=== PATIENT | female | born 1985 | race Caucasian/White ===

== ENCOUNTER 2017-01-19 07:30 | Inpatient (IN) | payer OTHER ==
--- NOTE | 2017-01-12 13:59 | GHP ---
[f rep st] PREOP HISTORY AND PHYSICAL DATE OF ADMISSION: 01/19/2017 DATE OF PLANNED PROCEDURE: 01/19/2017. PLANNED PROCEDURE: Repeat low transverse section. INDICATIONS: The patient is a 31-year-old 2, para 1, 0, 0, 1, who will be 39 and 3/7 weeks gestation. She has a history of a previous low transverse section. There is a lot of uncertainty over the indication for her initial section. The patient states a [facility] provider was covering call for her group. She progressed to completely dilated and did not even get a chance to begin pushing, and the provider came in and said she needed a for arrest of active phase labor and chorioamnionitis. The patient has been adequately counseled on the options of vaginal after section versus repeat . She would like to plan for a repeat section and has signed consent just in case she does happen to go into labor and decides to try a vaginal after section. The patient's family status is likely complete, but she is not ready to have a tubal ligation. Risks and benefits have been reviewed with the patient, and the patient has been properly consented. The patient had a low-lying placenta, which did resolve with followup ultrasound. MEDICAL HISTORY: History of migraine headaches. History of lipoma. MEDICATIONS: vitamins and iron. SURGICAL HISTORY: section, removal of lipoma on her back. ALLERGIES: No known drug allergies. SOCIAL HISTORY: The patient is . She lives with her and their daughter, who is 2-1/2. 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 She denies tobacco , alcohol, or drug use. FAMILY MEDICAL HISTORY: Noncontributory. 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 Periods every 28 days, lasting 5 days. She is a 2, para 1, 0, 0, 1. In 06/2014, she had a primary low transverse section at 40 and 4/7 weeks' gestation of a 7 pound, 2 ounce female . She was told that the baby was stuck at her pubic bone after she was completely dilated but did not begin to push and recommended having a C- section. Operative note was reviewed, and no further details were noted about that. The patient does have a remote history of abnormal Pap smears but has never had any colposcopies or procedures. Repeat Paps have been negative. The patient denies any history of any sexually transmitted diseases. PHYSICAL EXAMINATION: VITAL SIGNS: Stable. GENERAL APPEARANCE: Alert and oriented x3. NEURO: She has appropriate affect. NECK: Normal range of motion. Supple. There is no thyromegaly. LUNGS: Clear to auscultation bilaterally. HEART: Rate is regular, regular. ABDOMEN: Gravid, nondistended , nontender. No other organomegaly is noted. EXTREMITIES: No calf tenderness or edema. Reflexes are 2+ DTR bilaterally. DAIRY FARM OPERATOR: is in a vertex presentation. She is not having any contractions. heart tracing has been reactive. Cervical exam is deferred. LABS: Blood type O positive. Antibody screen negative. Rubella immune. GBS negative. HBsAg negative. HIV negative. Her 50g glucose was 74. The patient did not do any genetic testing. ASSESSMENT AND PLAN: 31-year-old 2, para 1, 0, 0, 1, who will be 39 and 3/7 weeks gestation. Has a history of a previous low transverse section. Will have a repeat section. Risks and benefits of the procedure extensively have been reviewed with the patient and her , and the patient has been properly consented. /[id number]/MODL MTDD
[2017-01-19] MEDS ORDERED: CITRIC ACID/SODIUM CITRATE 30 ML UDCUP PO ONE (08:26)
[2017-01-19] MEDS ORDERED: ceFAZolin 2 GM/DEXTROSE 100 ML IV ONE (08:26)
[2017-01-19] MEDS ORDERED: LR 500 ML IV ONE (08:26)
[2017-01-19] MEDS ORDERED: LR 1,000 ML IV SCH (08:30)
[2017-01-19 08:51] LABS: % IMMATURE GRANULYOCYTES 0.9 % (0.0-1.1); ABSOLUTE IMMATURE GRANULOCYTES 0.08 10^3/uL (0.00-0.10); ADD DIFF? NO; ADD MORPH? NO; ADD SCAN? NO; ATYPICAL LYMPHOCYTE FLAG 30 (0-99); FRAGMENT RBC FLAG 0 (0-99); HEMATOCRIT 35.8 % (38.0-47.0); HEMOGLOBIN 12.9 g/dL (12.6-16.3); LEFT SHIFT FLG 10 (0-99); LIPEMIA HEMOLYSIS FLAG 90 (0-99); MEAN CELL HEMOGLOBIN 32.7 pg (27.9-34.1); MEAN CELL VOLUME 90.6 fL (81.5-99.8); MEAN PLATELET VOLUME 11.2 fL (8.7-11.7); PLATELET CLUMPS FLAG 10 (0-99); PLATELET COUNT 211 10^3/uL (150-400); RED BLOOD CELL COUNT 3.95 10^6/uL (4.18-5.33); RED CELL DISTRIBUTION WIDTH 13.2 % (11.5-15.2)
[2017-01-19] MEDS ORDERED: AMMONIA AROMATIC 1 EACH AMP IH ONE (09:19)
[2017-01-19] MEDS ORDERED: MISOPROSTOL 200 MCG TAB ONE (09:20)
[2017-01-19] MEDS ORDERED: morphINE PF 5 MG/10 ML INJ ONE (09:43)
[2017-01-19] MEDS ORDERED: fentaNYL 100 MCG/2 ML INJ ONE (09:43)
[2017-01-19] MEDS ORDERED: PHENYLEPHRINE HCL 100 MCG/ML SYR ONE (10:14)
[2017-01-19] MEDS ORDERED: OXYTOCIN 100 UNITS/10 ML VIAL ONE (10:14)
[2017-01-19] MEDS ORDERED: DEXAMETHASONE 4 MG/ML VIAL ONE ×2 (10:14→10:15)
[2017-01-19] MEDS ORDERED: ONDANSETRON 4 MG/2 ML VIAL ONE ×2 (10:15)
[2017-01-19] MEDS ORDERED: POLYETHYLENE GLYCOL 3350 17 GM PKT PO PRN (11:20)
[2017-01-19] MEDS ORDERED: BISACODYL 10 MG SUPP PR PRN (11:20)
[2017-01-19] MEDS ORDERED: ACETAMINOPHEN 325 MG TAB PO PRN (11:20)
[2017-01-19] MEDS ORDERED: MAGNESIUM HYDROXIDE 30 ML UDCUP PO PRN (11:20)
[2017-01-19] MEDS ORDERED: LACTULOSE 20 GM/30 ML UDCUP PO PRN (11:20)
--- NOTE | 2017-01-19 11:20 | OBPROC ---
- Delivery Pre-op Diagnoses: IUP 39 1/7 weeks, hx prior section Post-op Diagnoses: same plus occiput posterior, body card Procedure: Repeat, Low Transverse Surgeon: Sofie Edmondson Mastic Floor Layer: Tricia Madera Anesthesiologist: Mega Nichols Anesthesia: Spinal Complications: Nucal Cord (body/under arm) EBL: 700 - Crozier Info Infant A Delivery Date: 01/19/17 Delivery Time: 10:28 Sex of Infant: Female Score (1 Min): 8 Score (5 Min): 8
--- NOTE | 2017-01-19 12:07 | GOP ---
[f rep st] OPERATIVE REPORT DATE OF OPERATION: 01/19/2017 SURGEON: Sofie Edmondson DO ESL INSTRUCTOR: RANI Vences. ANESTHESIA: Spinal. ANESTHESIOLOGIST: Mega Nichols MD. PREOPERATIVE DIAGNOSIS: 1. Intrauterine at 39-3/7 weeks. 2. History of previous low transverse section, desires repeat , declines tubal li gation. POSTOPERATIVE DIAGNOSIS: PROCEDURE PERFORMED: Repeat low transverse section. FINDINGS: 1. 7-pounds female in the occiput posterior presentation with a body cord delivered at 10:28 a.m. Apgars were 8 and 8. 2. Intact placenta with 3-vessel cord. 1. Normal ovaries, uterus, and tubes. ESTIMATED BLOOD LOSS: 700 cc. INDICATIONS: Patient is a 31-year-old, 2, para 1-0-1-1 who has a history of a previous low transverse section for probable cephalopelvic disproportion; however, it is not entirely cl ear from her operative report, and patient was never clear on the actual indication. She has a hist ory of a previous low transverse section but has elected to proceed with a repeat low trans verse section. Her family status is complete, but she is not 100% ready to have a tubal li gation, so we will not do that today. Management options of vaginal after section ve rsus repeat section were reviewed extensively. The patient was consented, and she desires to proceed. DESCRIPTION OF PROCEDURE: Patient was taken to the operating room with intravenous fluids in place. She was then seated on the operating table and room where spinal anesthesia was obtained. She was then repositioned into the dorsal supine position with a leftward tilt. 2 g of Ancef was hung and the Venodynes were placed on her lower extremities, and a Zuleta catheter was placed without difficul ty. Abdomen was then prepped and draped in the normal sterile fashion. Anesthesia was assessed and found to be adequate. A Pfannenstiel skin incision was then made 2 fingerbreadths above the pubic symphysis. The incision was then carried through to the underlying layer of fascia with the Bovie. The fascia was then nicked in the midline, and a fascial incision was extended laterally. The supe rior aspect of the fascial incision was then grasped with a Fausto, tented up, and the underlying re ctus muscle dissected off bluntly with the Bovie. Attention was then turned to the inferior aspect of the fascial incision, which, in a similar fashion, was grasped with a Fausto, tented up, and the underlying rectus muscle was dissected off bluntly and with the Bovie. The rectus muscle was then s eparated in the midline. The peritoneum was then identified, tented up, and entered sharply with th e Metzenbaum scissors. The incision was extended superiorly and inferiorly with excellent visualiza tion of the bladder. The bladder blade was then inserted. The vesicouterine peritoneum was then id entified, tented up, and entered sharply with the Metzenbaum scissors. The incision was extended la terally, and the bladder flap was created digitally. The bladder blade was then reinserted. The ut erus was then incised in low transverse fashion with the a scalpel. The uterine incision was extend ed laterally. Copious clear fluid was noted upon entering the uterus. The was head was deli heber through the incision. It was noted to be in the occiput posterior presentation. Cord was wra pped around the baby underneath the armpit the remainder of a 7 pounds female infant was then delive red without difficulty. Cord was clamped x2 and cut after 1 minute of delayed cord clamping, and th e was handed off to awaiting nurse practitioner. They placenta was then delivered w ithout difficulty. Three-vessel cord was noted. The uterus was then exteriorized and cleared of al l clots and debris, and the ovaries uterus and tubes were unremarkable. The bladder blade was then reinserted. The uterine incision was then closed with 0 Vicryl in a running, locked fashion. A 2nd tie of 0 Vicryl stitch was used to imbricate the uterine incision. Hemostasis was assured. The ut erus was then returned to the patient's abdomen. Gutters were cleared of all clots and debris. Hys terotomy remained hemostatic. Peritoneum was reapproximated with 3-0 Vicryl in a running fashion. Rectus muscle was reapproximated with 2-0 Vicryl in a running fashion. Fascia was closed with 0 Conner ryl in a running fashion. Subcutaneous tissue was found to be hemostatic and was reapproximated wit h 3-0 Vicryl in a running fashion. The skin was then closed with Steri-Strips sponge lap needle cou nts were correct x2. Patient was transported to recovery room in stable condition. /[id number]/MODL
[2017-01-19] MEDS: KETOROLAC 30 MG/1 ML SDV IVP SCH ×2 (12:17→18:51)
[2017-01-19] MEDS ORDERED: NALOXONE HCL 0.4 MG/ML INJ IVP PRN (15:44)
[2017-01-19] MEDS ORDERED: ONDANSETRON 4 MG/2 ML VIAL IVP PRN (15:44)
[2017-01-19] MEDS ORDERED: PHENYLEPHRINE HCL 100 MCG/ML SYR IVP PRN (15:44)
[2017-01-19] MEDS: SENNOSIDES/DOCUSATE SODIUM TAB PO SCH (20:11)
[2017-01-19] MEDS: IRON POLYSAC/IRON HEME 28 MG TAB PO SCH (20:18)
--- NOTE | 2017-01-19 21:54 | SOAPPROG ---
SOAP Progress Note Assessment/Plan: Assessment: pod# 0 s/p RLTCS breast feeding uncomplicated post operative course Plan: 01/19/17 21:52 Subjective: patient is doing great! pain is well controlled. normal lochia. working on breast feeding. denies headache and changes in vision, Objective: Vital Signs Temp Pulse Resp BP Pulse Ox 36.3 C 58 L 16 104/66 95 01/19/17 20:15 01/19/17 21:14 01/19/17 20:15 01/19/17 21:14 01/19/17 21:14 Laboratory Results 01/19/17 08:15 01/18/17 01/19/17 01/20/17 05:59 05:59 05:59 Intake Total 3850 Output Total 1875 Balance 1975 Physical Exam - Physical Exam General Appearance: WD/WN, alert, no apparent distress Respiratory: chest non-tender, lungs clear, normal breath sounds Cardiac/Chest: normal peripheral pulses, regular rate, rhythm Abdomen: normal bowel sounds, non-tender, soft, other (fundus firm and non tender) Skin: normal color, warm/dry Extremities: normal range of motion, non-tender, normal inspection, normal capillary refill Neuro/Psych: no motor/sensory deficits, alert, normal mood/affect, oriented x 3 ICD10 Worksheet Patient Problems: Problems Problem Status Onset delivery delivered Acute
[2017-01-20] MEDS: KETOROLAC 30 MG/1 ML SDV IVP SCH ×2 (01:35→08:06)
[2017-01-20] MEDS: SENNOSIDES/DOCUSATE SODIUM TAB PO SCH ×2 (08:05→19:56)
[2017-01-20] MEDS: IRON POLYSAC/IRON HEME 28 MG TAB PO SCH ×2 (08:07→17:13)
--- NOTE | 2017-01-20 13:33 | OBPROG ---
OBG Progress Note Assessment/Plan: Assessment: 31 y/o POD #1 s/p Rpt LTCS doing well. Plan: Bifera QD secondary to anemia, abdominal binder prn. support and pt may shower this afternoon. 01/20/17 13:32 Subjective: Pt is doing well today. She is ambulating and voiding and has had min lochia. Her pain has been controlled with Toradol, but she is transitioning to po pain meds. Baby is doing well and they are working on breast feeding. Objective: 01/20/17 02:22 Patient ABO/Rh O POSITIVE 01/19/17 08:15 Temp Pulse Resp BP Pulse Ox 36.6 C 75 16 94/58 L 96 01/20/17 08:10 01/20/17 08:10 01/20/17 08:10 01/20/17 08:10 01/20/17 08:10 Uterine Position/Fundal Height: Umbilicus -2 Uterine Tone: Firm - Physical Exam General Appearance: WD/WN, alert, no apparent distress Neck: non-tender, full range of motion, supple Respiratory: chest non-tender, lungs clear, normal breath sounds Cardiac/Chest: regular rate, rhythm Abdomen: normal bowel sounds, incision (c/d/i) Extremities: swelling (no), Saundra's sign (neg) ICD10 Worksheet Patient Problems: Problems Problem Status Onset delivery delivered Acute
[2017-01-20] MEDS: IBUPROFEN 600 MG TAB PO PRN ×2 (13:56→19:57)
[2017-01-20] MEDS: HYDROCODONE/APAP 5/325 TAB PO PRN ×2 (15:18→21:34)
[2017-01-21] MEDS: IBUPROFEN 600 MG TAB PO PRN ×4 (03:47→21:55)
[2017-01-21] MEDS: SENNOSIDES/DOCUSATE SODIUM TAB PO SCH ×2 (07:35→21:55)
[2017-01-21] MEDS: IRON POLYSAC/IRON HEME 28 MG TAB PO SCH (07:36)
[2017-01-21] MEDS: HYDROCODONE/APAP 5/325 TAB PO PRN ×4 (07:36→21:56)
--- NOTE | 2017-01-21 08:44 | SOAPPROG ---
SOAP Progress Note Assessment/Plan: Assessment: well right breast soreness intact on assessment ff@u scant rubra lochia voiding without difficulty passing gas ambulatory without difficulty Plan: consult today continued po management po day 2 01/21/17 08:42 Subjective: Doing well. Denies difficuties. Right breast soreness consult discussed ways to assist Objective: Vital Signs Temp Pulse Resp BP Pulse Ox 36.1 C 70 18 110/76 98 01/21/17 04:15 01/21/17 04:15 01/21/17 04:15 01/21/17 04:15 01/21/17 04:15 Laboratory Results 01/20/17 02:22 01/20/17 01/21/17 01/22/17 05:59 05:59 05:59 Intake Total 4350 860 Output Total 1875 1500 Balance 7830 -708 Physical Exam - Physical Exam General Appearance: WD/WN, alert, no apparent distress Respiratory: chest non-tender, lungs clear, normal breath sounds Cardiac/Chest: regular rate, rhythm Abdomen: normal bowel sounds Pelvic Exam: vaginal bleeding (scant rubra lochia) Skin: normal color, warm/dry Extremities: normal range of motion, Saundra's sign (negative homens sign bilaterally) Neuro/Psych: no motor/sensory deficits, alert, normal mood/affect, oriented x 3 ICD10 Worksheet Patient Problems: Problems Problem Status Onset delivery delivered Acute
--- NOTE | 2017-01-21 20:14 | SOAPPROG ---
SOAP Progress Note Assessment/Plan: Assessment: pod# 2 s/p RLTCS breast feeding uncomplicated post operative course breast feeding Plan: routine post and post operative course 01/21/17 20:12 Subjective: patient is doing well. pain is well controlled now. ambulating. passing gas. denies headache and changes in vision. Objective: Vital Signs Temp Pulse Resp BP Pulse Ox 36.5 C 66 18 112/72 95 01/21/17 19:17 01/21/17 19:17 01/21/17 19:17 01/21/17 19:17 01/21/17 19:17 Laboratory Results 01/20/17 02:22 01/20/17 01/21/17 01/22/17 05:59 05:59 05:59 Intake Total 4350 860 Output Total 1875 1500 Balance 3425 -640 Physical Exam - Physical Exam General Appearance: WD/WN, alert, no apparent distress Respiratory: chest non-tender, lungs clear, normal breath sounds Cardiac/Chest: normal peripheral pulses, regular rate, rhythm Abdomen: normal bowel sounds, non-tender, soft, other (fundus firm and non tender) Skin: normal color, warm/dry, other (incision clean dry and intact) Extremities: normal range of motion, non-tender, normal inspection, normal capillary refill Neuro/Psych: no motor/sensory deficits, alert, normal mood/affect, oriented x 3 ICD10 Worksheet Patient Problems: Problems Problem Status Onset delivery delivered Acute
[2017-01-22] MEDS: IBUPROFEN 600 MG TAB PO PRN ×2 (03:47→10:37)
--- NOTE | 2017-01-22 07:35 | OBPP ---
Progress Note Assessment/Plan: Assessment: 1) s/p RCS POD # 3 - pt is stable 2) Anemia - pt is asymptomatic Plan: Plan for d/c home today Instructions reviewed with pt Rx given for [place] and Motrin Cont PNV and iron Pelvic rest RTC in 2,4 and 6 weeks for pp visit Remove sherly prior to d/c home 01/22/17 07:38 Subjective: Pt seen and examined. Doing well, sitting in chair with no complaints. Pain is well controlled. Pt is OOB, álvaro reg diet, voiding and passing flatus. BM x 1. Moderate lochia. Denies any f/c/n/v/CP or SOB. BF without difficulty. Objective: 01/20/17 02:22 Patient ABO/Rh O POSITIVE 01/19/17 08:15 Temp Pulse Resp BP Pulse Ox 36.5 C 66 18 112/72 95 01/21/17 19:17 01/21/17 19:17 01/21/17 19:17 01/21/17 19:17 01/21/17 19:17 Uterine Position/Fundal Height: Umbilicus -2 Uterine Tone: Firm Physical Exam - Physical Exam General Appearance: WD/WN, alert, no apparent distress Respiratory: lungs clear, normal breath sounds Cardiac/Chest: regular rate, rhythm Abdomen: normal bowel sounds, non-tender, soft, flatus (+), incision (C/D/I with sherly) Extremities: non-tender, normal inspection Neuro/Psych: alert, normal mood/affect, oriented x 3
[2017-01-22] MEDS: HYDROCODONE/APAP 5/325 TAB PO PRN (07:41)
[2017-01-22] MEDS: SENNOSIDES/DOCUSATE SODIUM TAB PO SCH (07:41)
[2017-01-22] MEDS: IRON POLYSAC/IRON HEME 28 MG TAB PO SCH (10:37)
[2017-01-22 11:06] VITALS: BP 113/61; PULSE 71; RESP 16; TEMP 97.1; O2SAT 98
== END 2017-01-22 11:15 | disposition home or self-care (01) | DRG 766 ==
LOC: FLD 07:30 → FOB 13:15
PROVIDERS: ADMIT Obstetrics & Gynecology; ATTEND Obstetrics & Gynecology
PROC: 10D00Z1 Extraction of Products of Conception, Low, Open Approach (ICD-10-PCS; principal; 2017-01-19)
DX: O34.219 Maternal care for unspecified type scar from previous cesarean delivery (principal); O69.82X0 Labor and delivery complicated by other cord entanglement, without compression, not applicable or unspecified; O09.523 Supervision of elderly multigravida, third trimester; Z37.0 Single live birth; Z3A.39 39 weeks gestation of pregnancy
CPT/HCPCS: J0690; J1100; J1885; J2274; J2370; J2405; J2590; J3010